=== PATIENT | female | born 1975 | race Caucasian/White ===

== ENCOUNTER 2024-10-06 07:34 | Emergency (ER) | payer BC ==
[2024-10-06] MEDS ORDERED: levETIRAcetam 500 MG (5 mL) VIAL ONE (07:51)
[2024-10-06] MEDS ORDERED: Sodium Chloride 0.9% 100 ML ONE (07:52)
[2024-10-06] MEDS ORDERED: Sodium Chloride 0.9% 1,000 ML ONE (08:30)
[2024-10-06 08:45] LABS: #Basophils 0.2 thou/uL (0.0-0.2); #Eosinophils 0.1 thou/uL (0.0-0.7); #Lymphocytes 2.8 thou/uL (1.20-3.40); #Monocytes 0.7 thou/uL (0.11-0.59); #Neutrophils 10.5 thou/uL (1.40-6.50); %Basophils 1.2 % (0.0-1.0); %Eosinophils 0.5 % (0.0-10.0); %Lymphocytes 19.7 % (21.0-51.0); %Neutrophils 73.7 % (42.0-75.0); Hematocrit 37.7 % (36.0-47.0); Hemoglobin 11.1 g/dL (12.0-16.0); Mean Corpuscular HGB CONC 29.4 g/dL (32.0-36.0); Mean Corpuscular Volume 81.7 fl (78.0-98.0); Mean Platelet Volume 9.1 fL (7.4-10.4); Platelet Count 345 10x3/uL (130-400); Red Blood Cell (RBC) Count 4.61 mill/uL (4.20-5.40); White Blood Cell (WBC) Count 14.2 10x3/uL (4.8-10.8)
[2024-10-06 08:52] LABS: INR-International Normal Ratio 1.1; Prothrombin Time 14.4 sec (12.0-14.7)
[2024-10-06 08:53] LABS: PTT 27.3 sec (22.9-36.1)
[2024-10-06 08:56] LABS: Anisocytosis SLIGHT = 6-15 cells (100X) (0-5/hpf)
[2024-10-06 08:57] LABS: ALT (SGPT) Less than 7 U/L (Less than 34); AST (SGOT) 16 U/L (11-34); Albumin 3.7 g/dL (3.1-4.5); Alkaline Phosphatase 76 U/L (40-110); Anion Gap 18 mmol/L (10-20); BUN (Urea Nitrogen) 13 mg/dL (7.0-18.7); Bilirubin, Total 0.3 mg/dL (0.3-1.2); Calc. Creatinine Clearance 0 mL/min (70-130); Calcium 8.3 mg/dL (7.8-10.44); Carbon Dioxide 22 mmol/L (22-29); Chloride 103 mmol/L (98-107); Estimated GFR 112; Globulin 4.3 g/dL (2.4-3.5); Glucose 158 mg/dL (70-105); Platelet Adequacy Comment Appears Adequate; Potassium 3.9 mmol/L (3.5-5.1); Sodium 139 mmol/L (136-145)
[2024-10-06 09:11] LABS: Troponin I 0.024 ng/mL (< 0.028)
[2024-10-06 09:39] LABS: Bilirubin Negative (Negative); Blood, Urine Negative (Negative); Clarity Clear (Clear); Glucose, Urine (Dipstick) Negative (Negative); Ketone, Urine 40 mg/dL (Negative); Leukocyte Negative (Negative); Nitrite Negative (Negative); Protein, Urine (Dipstick) 30 mg/dL (Neg-Trace); Urobilinogen 0.2 mg/dL (Less than 2)
[2024-10-06 09:46] LABS: Amphetamine Negative (Negative); Barbiturates Screen Negative (Negative); Benzodiazepine Screen Negative (Negative); Cocaine Metabolite Screen Negative (Negative); Methadone Negative (Negative); Methamphetamine Negative (Negative); Opiate Screen Negative (Negative); Oxycodone Screen Negative (Negative); Phencyclidine (PCP) Negative (Negative); THC/Cannabinoid Screen Negative (Negative); Tricyclic Screen Negative (Negative)
[2024-10-06 09:51] LABS: Bacteria/HPF 1+ HPF (None Seen); CAUTI Indications for Culture Dysuria,urgency,freq; RBC/HPF 0-3 HPF (0-3); Squamous Epithelial 0-3 HPF (0-3); WBC/HPF 0-3 HPF (0-3)
[2024-10-06 09:52] LABS: Urine Culture Reflex No No
[2024-10-06] MEDS ORDERED: Acetaminophen 325 MG TAB ONE (10:46)
[2024-10-06] MEDS ORDERED: risperiDONE 1 MG TAB PO SCH (11:15)
== END 2024-10-06 12:03 ==
LOC: MADERS 07:34
DX: G40.909 Epilepsy, unspecified, not intractable, without status epilepticus (principal); E11.9 Type 2 diabetes mellitus without complications; K21.9 Gastro-esophageal reflux disease without esophagitis; I48.91 Unspecified atrial fibrillation; Z79.84 Long term (current) use of oral hypoglycemic drugs; Z79.899 Other long term (current) drug therapy; Z79.82 Long term (current) use of aspirin; Z79.01 Long term (current) use of anticoagulants; Z79.4 Long term (current) use of insulin
CPT/HCPCS: 51701; 70450; 71045; 80053; 80164; 80306; 81001; 83605; 84484; 85025; 85610; 85730; 87040; 87149; 87428; 93005; 96361; 96374; J1953; J7030